=== PATIENT | female | born 2000 | race Caucasian/White ===

== ENCOUNTER 2018-06-30 04:35 | Inpatient (IN) | payer MEDICAID ==
[~2018-06-30] VITALS: Ht 162.6 cm; Wt 68.0 kg
[2018-06-30 04:45] VITALS: BP 128/71; PULSE 74
[2018-06-30] MEDS ORDERED: LIDOCAINE 1% (MPF) 30 ML INJ INJ PRN (05:00)
[2018-06-30] MEDS ORDERED: OXYTOCIN 30 UNITS/LR 500 ML IV PRN ×2 (05:00→16:00)
[2018-06-30] MEDS ORDERED: METHYLERGONOVINE 0.2 MG INJ IM PRN ×2 (05:00→16:00)
[2018-06-30] MEDS ORDERED: CARBOPROST 250 MCG INJ IM PRN ×2 (05:00→16:00)
[2018-06-30] MEDS ORDERED: OXYTOCIN 30 UNITS/LR 500 ML IV SCH ×2 (05:00)
[2018-06-30] MEDS ORDERED: MINERAL OIL LIGHT 10 ML VIAL TOP PRN (05:00)
[2018-06-30] MEDS ORDERED: MISOPROSTOL 200 MCG TAB PR PRN ×2 (05:00→16:00)
[2018-06-30] MEDS ORDERED: OXYCODONE/ASPIRIN (4.88/325) TAB PO PRN ×3 (05:00→16:00)
[2018-06-30] MEDS ORDERED: BUTORPHANOL 2 MG INJ IV PRN (05:00)
[2018-06-30] MEDS ORDERED: DEXTROSE 5%-LR 1,000 ML IV PRN (05:00)
[2018-06-30] MEDS ORDERED: IBUPROFEN 600 MG TAB PO PRN (05:00)
[2018-06-30] MEDS ORDERED: PREN1TAB13 PO (05:06)
[2018-06-30 05:24] VITALS: Ht 162.6 cm; Wt 68.0 kg
[2018-06-30] MEDS: LACTATED RINGER'S 1,000 ML IV SCH ×3 (05:37→18:32)
--- NOTE | 2018-06-30 06:22 | PREAC ---
Date/Time of Note Date/Time of Note DATE: 06/30/18 TIME: 06:21 Anesthesia Eval and Record Evaluation Time Pre-Procedure Interview DATE: 06/30/18 TIME: 06:21 Age 17 Sex female NPO: 8 hrs Preoperative diagnosis labor pain Planned procedure Epidural Past Medical History Past Medical History: None Surgery & Anesthesia Issues No known issue Meds Anticoagulation: No Beta Crow within 24 hr: No Reason Beta Crow not given: Pt. not on B-Crow Reported Medications Pnv95/Ferrous Fumarate/FA ( Vitamins Tablet) 1 Each Tablet, 1 EACH PO, TAB 06/30/18 Current Medications Lactated Ringer's 1,000 ml @ 125 mls/hr Q8H IV Last administered on 06/30/18at 06:18; Admin Dose 125 MLS/HR; Start 06/30/18 at 04:59 Dextrose/Lactated Ringer's 1,000 ml @ 125 mls/hr Q8H PRN IV MINIMAL VARIABILITY; Start 06/30/18 at 05:00 Butorphanol Tartrate (Stadol) 2 mg Q2H PRN IV .PAIN; Start 06/30/18 at 05:00 Lidocaine (Xylocaine 1% (Mpf)) 30 ml ONCE PRN INJ .EPISIOTOMY; Start 06/30/18 at 05:00 Oxytocin/Lactated Ringer's 500 ml @ 500 mls/hr ONCE POST IV ; Start 06/30/18 at 05:00 Oxytocin/Lactated Ringer's 500 ml @ 125 mls/hr POST IV ; Start 06/30/18 at 05:00 Ibuprofen (Motrin) 600 mg ONCE PRN PO .PAIN 1-5; Start 06/30/18 at 05:00 Oxycodone/Aspirin (Percodan) 2 tab ONCE PRN PO .PAIN 6-10; Start 06/30/18 at 05:00 Oxytocin/Lactated Ringer's 500 ml @ 0 mls/hr ONCE PRN IV .VAGINAL BLEEDING; Start 06/30/18 at 05:00 Methylergonovine Maleate (Methergine) 0.2 mg ONCE PRN IM .VAGINAL BLEEDING; Start 06/30/18 at 05:00 Carboprost Tromethamine (Hemabate) 250 mcg ONCE PRN IM .VAGINAL BLEEDING; Start 06/30/18 at 05:00 Misoprostol (Cytotec) 1,000 mcg ONCE PRN NM .VAGINAL BLEEDING; Start 06/30/18 at 05:00 Mineral Oil (Muri-Lube) PRN PRN TOP VAGINAL DELIVERY; Start 06/30/18 at 05:00 Meds reviewed: Yes Allergies Coded Allergies: No Known Allergy (Unverified , 06/30/18) Allergies Reviewed: Yes Labs/Studies Labs Reviewed: Reviewed by anesthesiologist Result Diagram: 06/30/18 0530 06/30/18 0530 Laboratory Tests 06/30/18 05:30 test: Positive Studies: ECG (n/a), CXR (n/a) Pre-procedure Exam Last vitals Vital Signs Date Temp Pulse Resp B/P (MAP) Pulse Ox O2 O2 Flow FiO2 Time Delivery Rate 06/30/18 98.3 74 128/71 Room Air 04:45 (90) Airway: Adequate mouth opening Mallampati: Mallampati I Teeth: Normal Lung: Normal Heart: Normal ASA Physical Status ASA physical status: 2 Emergency: None Planned Anesthetic Neuraxial: Epidural Pre-operative Attestations Prior to commencing anesthesia and surgery, the patient was re-evaluated, there was verification of: *The patient's identity *The results of appropriate recent lab work and preoperative vital signs *The above evaluation not changing prior to induction *Anesthetic plan, risk benefits, alternative and complications discussed with patient/family; questions answered; patient/family understands, accepts and wis hes to proceed. KRPUA BRIONES MD Jun 30, 2018 06:22
[2018-06-30] MEDS ORDERED: FENTAnyl 2MCG/ML-ROPIV 0.2% 100 ML ONE (06:39)
--- NOTE | 2018-06-30 06:49 | HP ---
Date/Time of Note Date/Time of Note DATE: 06/30/18 TIME: 06:41 OB - History Hx of Present Free Text/Dictation 17y.o at 40w1d with c/o UC's q2-3min with intact membrane since midnite. EFM uc's 2-3min ,CAT I EFW 3272gm CECILIA 5,7 record not available VE /-2 GBS neg Admitted for expectant management. Chief Complaint: uc's Estimated Due Date: Jun 29, 2018 : 2 Para: 1 Spontaneous : 0 Therapeutic : 0 Care: Limited Care Ultrasounds: Other Obstetrical Complications: None Medical Complications: None Past Family/Social History * Past Medical, Surgical, Family and Obstetric Histories reviewed from chart. Blood Type: A+ Rubella: immune RPR/VDRL: Negative GBS Status: Negative HBsAG: Negative OB Admission Exam Vital Signs Vital Signs Vital Signs Date Temp Pulse Resp B/P (MAP) Pulse Ox O2 O2 Flow FiO2 Time Delivery Rate 06/30/18 98.3 74 128/71 Room Air 04:45 (90) Physical Exam HEENT: WNL Heart: Rhythm Normal Lungs: Clear, Equal Abdomen: WNL Extremities: Normal Reflexes: Normal Cervical Dilatation: 4cm Effacement: 75% Station: -2 Membranes: Intact Amniotic Fluid: Unevaluable Heart Rate: 140's Accelerations: Accelerations Present Decelerations: No Decelerations Varibility: Moderate Contractions on Admission: < 5 Minutes Apart Intensity: Moderate Last 72 hours Lab Results CBC & BMP 06/30/18 05:30 OB Assessment/Plan Reason for admission: active labor Other Assessment: IUP 40w1d oligohydramnios Plan: Expectant Management DENA GU MD Jun 30, 2018 06:49
[2018-06-30] MEDS ORDERED: FENTAnyl 2MCG/ML-ROPIV 0.2% 100 ML BAG EPI SCH (07:30)
[2018-06-30] MEDS ORDERED: NALOXONE (0.4 MG/ML) INJ IV PRN (07:30)
--- NOTE | 2018-06-30 07:47 | PAC ---
Date/Time of Note Date/Time of Note DATE: 06/30/18 TIME: 07:47 Post-Anesthesia Notes Post-Anesthesia Note Last documented vital signs Vital Signs Date Temp Pulse Resp B/P (MAP) Pulse Ox O2 O2 Flow FiO2 Time Delivery Rate 06/30/18 98.3 74 19 128/71 100 Room Air 08:45 (90) Activity: WNL Respiratory function: WNL Cardiovascular function: WNL Mental status: Baseline Pain reasonably controlled: Yes Hydration appropriate: Yes Nausea/Vomiting absent: No KRUPA BRIONES MD Jun 30, 2018 07:47
[2018-06-30] MEDS ORDERED: ROPIVACAINE 0.2% 100ML BAG EPI SCH (13:00)
[2018-06-30] MEDS ORDERED: SOD CHLORIDE 0.9% 1,000 ML IV SCH (13:30)
[2018-06-30] MEDS ORDERED: CEFTRIAXONE 1 GM/50 ML (PMX) 50 ML IVPB SCH (14:30)
--- NOTE | 2018-06-30 14:53 | LDN ---
Date/Time of Note Date/Time of Note DATE: 06/30/18 TIME: 14:47 Delivery Summary of normal male Weeks of Gestation 40w1d Placenta Delivered: Spontaneously, Intact & Complete Episiotomy: No Perineal laceration: 2 Laceration repair: 00 ch gut Anesthesia type: Epidural Estimated blood loss: 100 Sponge & Needle done & correct: Yes All needle counts correct: Yes Any foreign bodies felt in the: No Infant Delivery Information Sex Sex: male Apgars 1 Minute: 9 5 Minute: 9 Suctioning Nose & mouth suctioned at daniel: Yes Delee suction performed: Yes Umbilical Cord Umbilical cord with: 3 Vessels Cord presentations: no nuchal cord Cord Blood was obtained: Yes Mother & Baby Disposition Disposition Mom & Baby to Maternity; Good: Yes Mom transferred to: Other Baby to NICU: No () DENA GU MD Jun 30, 2018 14:53
[2018-06-30 16:00] VITALS: BP 138/71; PULSE 83; RESP 18
[2018-06-30] MEDS ORDERED: LANOLIN HPA 1 PKT TOP PRN (16:00)
[2018-06-30] MEDS ORDERED: WITCH HAZEL/GLYCERIN PAD PR PRN (16:00)
[2018-06-30] MEDS ORDERED: BENZOCAINE 20% 56 ML SPRAY TOP PRN (16:00)
[2018-06-30] MEDS ORDERED: ZOLPIDEM 5 MG TAB PO PRN (16:00)
[2018-06-30 17:20] VITALS: BP 132/70; PULSE 91; RESP 18
[2018-06-30] MEDS: IBUPROFEN 600 MG TAB PO SCH ×2 (17:23→23:37)
[2018-06-30 19:45] VITALS: BP 129/80; PULSE 99; RESP 18
[2018-06-30] MEDS: SENNA/DOCUSATE NA (8.6MG/50MG) TAB PO SCH (21:17)
[2018-07-01 00:15] VITALS: BP 122/78; PULSE 89; RESP 18
[2018-07-01 04:00] VITALS: BP_SYST 118; BP_SYST 129; BP_DIAS 58; BP_DIAS 79; PULSE 74; PULSE 81; RESP 18
[2018-07-01] MEDS: IBUPROFEN 600 MG TAB PO SCH ×4 (05:40→23:47)
[2018-07-01 07:45] VITALS: BP 101/54; PULSE 75; RESP 19
[2018-07-01] MEDS: SENNA/DOCUSATE NA (8.6MG/50MG) TAB PO SCH ×2 (09:46→22:13)
[2018-07-01 12:00] VITALS: BP 100/55; PULSE 68; RESP 20
[2018-07-01 15:30] VITALS: BP 101/59; PULSE 66; RESP 20
[2018-07-01 20:00] VITALS: BP 121/70; PULSE 62; RESP 18
[2018-07-02 05:18] VITALS: BP 104/56; PULSE 62; RESP 18
[2018-07-02] MEDS: IBUPROFEN 600 MG TAB PO SCH ×2 (05:59→12:16)
[2018-07-02 08:00] VITALS: BP 110/68; PULSE 68; RESP 19
[2018-07-02] MEDS: SENNA/DOCUSATE NA (8.6MG/50MG) TAB PO SCH (08:59)
[2018-07-02] MEDS ORDERED: DIPHTH/TET/ACEL PERTUSS (ADULT) 0.5 ML VIAL IM* ONE (09:00)
--- NOTE | 2018-07-02 09:24 | PD.PPDC ---
TRAVEL PTA Discharge Instruction Condition [id number] Patient Condition: Pqwxz2v Good Diet Mdeba0Ns Diet: Bnfij9s Resume Regular Diet Activity/Restrictions [id number] Activity: Awuyp2g Normal Activity May Shower [id number] Restrictions: [id number] No Sexual Activity Nothing in the Vagina No Margaret No Tampons, douche Follow-up Follow-up with Physician: 6, Week/Weeks Return to clinic for [id number] BLOOD BANK ORDER CONTROL CLERK Instructions: Byzkb9h Fever greater than 101 Chills Worsening abdominal pain Excessive Vaginal Bleeding [id number] OB Instructions: Sdemi9k Breast Tenderness Depression TORI LEON MD Jul 02, 2018 09:24
--- NOTE | 2018-07-02 09:26 | DS ---
Date/Time of Note Date/Time of Note DATE: 07/02/18 TIME: 09:25 Obstetrical Discharge Record Final Diagnosis Final Diagnosis: Term delivered Vaginal Delivery Obstetrical Delivery: Spontaneous, Laceration, Repaired Complications Augmentation: No Induction: No Condition on Discharge Physical Assessment Voiding: Yes Bowel Movement: Yes Breast: Filling Fundus: Firm Calf Tenderness: No Patient Condition: Good TORI LEON MD Jul 02, 2018 09:26
--- NOTE | 2018-07-02 19:50 | QN ---
Documentation Comment this is a late entry note for 07/01/2018 day #1 Status post Patient stable and afebrile Tolerating regular diet and ambulating and voiding without any difficulties Vital signs stable VS - Last 72 Hours, by Label Date Temp Pulse Resp B/P (MAP) Pulse Ox O2 O2 Flow FiO2 Time Delivery Rate 07/02/18 98.4 68 19 110/68 Room Air 08:00 (82) 07/02/18 98.2 62 18 104/56 Room Air 05:18 (72) 07/01/18 98.1 62 18 121/70 Room Air 20:00 (87) 07/01/18 98.3 66 20 101/59 Room Air 15:30 (73) 07/01/18 98.0 68 20 100/55 Room Air 12:00 (70) 07/01/18 98.2 75 19 101/54 Room Air 07:45 (70) 07/01/18 98.3 81 18 129/58 Room Air 04:00 (81) 07/01/18 98.0 89 18 122/78 Room Air 00:15 (93) 06/30/18 98.3 99 18 129/80 Room Air 19:45 (96) 06/30/18 99.0 91 18 132/70 Room Air 17:20 (90) 06/30/18 99.1 83 18 138/71 Room Air 16:00 (93) 06/30/18 98.3 74 128/71 Room Air 04:45 (90) Hematology - 72 Hrs Test 06/30/18 05:30 07/01/18 06:20 Hematocrit 34.2 % (37.0-47.0) L 35.0 % (37.0-47.0) L Hemoglobin 11.3 g/dl (12.0-16.0) L 11.3 g/dl (12.0-16.0) L Mean Corpuscular 29.5 pg (29.0-33.0) 29.2 pg (29.0-33.0) Hemoglobin Mean Corpuscular 33.0 g/dl (32.0-37.0) 32.3 g/dl (32.0-37.0) Hemoglobin Concent Mean Corpuscular Volume 89.3 fl (72.0-104.0) 90.4 fl (72.0-104.0) Mean Platelet Volume 10.7 fl (7.4-10.4) H 10.9 fl (7.4-10.4) H Platelet Count 292 10^3/UL (140-415) 303 10^3/UL (140-415) Red Blood Count 3.83 10^6/ul (4.20-5.40) 3.87 10^6/ul (4.20-5.40) L L Red Cell Distribution 13.2 % (11.5-14.5) 13.4 % (11.5-14.5) Width White Blood Count 11.0 10^3/ul (4.8-10.8) 13.7 10^3/ul (4.8-10.8) H #H Chemistry Test 06/30/18 05:30 Glucose Level 84 mg/dl (70-220) Abdomen soft, fundus firm Perineum intact Extremities nontender Assessment and plan; Patient stable and doing well continue with routine care ALISON ALLEN MD Jul 02, 2018 19:50
--- NOTE | 2018-07-03 13:41 | DELSUM ---
Delivery Summary A-C Datetime Report Generated by CPN: 07/03/2018 13:41 DELIVERY PERSONNEL [employer]: [employer] MATERNAL INFORMATION Delivery Anesthesia: Epidural Medications in Delivery: OXYTOCIN 30 UNITS IN LR Delivery QBL (ml): 72 Placenta Cultured: No LABOR SUMMARY EDC: 06/29/2018 00:00 No. Babies in Womb: 1 Attempted: No Labor Anesthesia: Epidural LABOR INFORMATION Reason for Induction: Not Applicable Onset of Labor: 06/30/2018 00:00 Complete Dilatation: 06/30/2018 12:17 Oxytocin: N/A Group B Beta Strep: Negative Antibiotics # of Doses: 0 Steroids Given: None Reason Steroids Not Administered: Not Applicable MEMBRANES Membranes Rupture Method: Artificial Rupture of Membranes: 06/30/2018 12:57 Length of Rupture (hr): 0.03 Amniotic Fluid Color: Clear Amniotic Fluid Amount: Small Amniotic Fluid Odor: None STAGES OF LABOR Stage 1 hr: 12 Stage 1 min: 17 Stage 2 hr: 0 Stage 2 min: 42 Stage 3 hr: 0 Stage 3 min: 3 Total Time in Labor hr: 13 Total Time in Labor min: 2 VAGINAL DELIVERY Episiotomy: None Laceration Extension: Second Degree Laceration Type: Perineal Laceration Repair: Yes Initial Vag Sponge Count: 10 Final Vag Sponge Count: 10 Initial Vag Sharps Count: 1+1 Final Vag Sharps Count: 2 Sponge Count Correct: Yes; Vaginal Sweep Performed Sharps Count Correct: Yes BABY A INFORMATION Infant Delivery Date/Time: 06/30/2018 12:59 Method of Delivery: Vaginal Born in Route : No : N/A Forceps: N/A Vacuum Extraction: N/A Shoulder Dystocia : N/A SHOULDER DYSTOCIA BABY A Infant Delivery Date/Time: 06/30/2018 12:59 PRESENTATION/POSITION BABY A Presentation: Cephalic Cephalic Presentation: Vertex Vertex Position: Left Occipital Anterior Breech Presentation: N/A PLACENTA INFORMATION BABY A Placenta Delivery Time : 06/30/2018 13:02 Placenta Method of Delivery: Spontaneous Placenta Status: Delivered SCORES BABY A Heart Rate 1 min: >100 bpm Resp Effort 1 min: Good Cry Reflex Irritability 1 min: Cough/Sneeze/Pulls Away Muscle Tone 1 min: Active Motion Color 1 min: Body [place], Extremit Blue Resuscitation Effort 1 min: Tactile Stimulation SCORE 1 MIN: 9 Heart Rate 5 min: >100 bpm Resp Effort 5 min: Good Cry Reflex Irritability 5 min: Cough/Sneeze/Pulls Away Muscle Tone 5 min: Active Motion Color 5 min: Body [place], Extremit Blue Resuscitation Effort 5 min: Tactile Stimulation SCORE 5 MIN: 9 INFANT INFORMATION BABY A Gestational Age at Delivery: 40.1 Gestational Status: Full Term- 39- 40.6 Weeks Infant Outcome : Liveborn Infant Condition : Stable Sex: Male IDENTIFICATION/MEDS BABY A ID Band Number: [id number] ID Band Location: Right Leg; Left Arm Sensor Applied: Yes Sensor Number: [id number] Sensor Location : Cord Clamp Vitamin K Given : Not Given Erythromycin Given: Not Given WEIGHT/LENGTH BABY A Birthweight (gm): 3200 Infant Weight (lb): 7 Weight (oz): 1 Infant Length (in): 20.75 Infant Length (cm): 52.71 CORD INFORMATION BABY A No. Cord Vessels: 3 Nuchal Cord : N/A Cord Blood Taken: Yes Banking/Donate Info: N/A Infant Suction: Mouth; Nose ASSESSMENT BABY A Infant Complications: None Physical Findings at Delivery: Within Normal Limits Infant Respirations: Appears Normal Engineering Manager Electronics/ALS Called : No Infant Care By: MICHELLE Transferred To: Remains with Mother
== END 2018-07-02 13:41 | disposition home or self-care (01) | DRG 807 ==
LOC: L-D 04:35 → OBT 04:35 → L-D 05:00 → OBT 05:13 → PP1 15:35
PROVIDERS: ADMIT Obstetrics & Gynecology; ATTEND Obstetrics & Gynecology
PROC: 10E0XZZ Delivery of Products of Conception, External Approach (ICD-10-PCS; principal; 2018-06-30)
PROC: 0KQM0ZZ Repair Perineum Muscle, Open Approach (ICD-10-PCS; 2018-06-30)
PROC: 4A1HXCZ Monitoring of Products of Conception, Cardiac Rate, External Approach (ICD-10-PCS; 2018-06-30)
PROC: 3E0234Z Introduction of Serum, Toxoid and Vaccine into Muscle, Percutaneous Approach (ICD-10-PCS; 2018-07-02)
DX: O48.0 Post-term pregnancy (principal); Z37.0 Single live birth; Z3A.40 40 weeks gestation of pregnancy; O70.1 Second degree perineal laceration during delivery; O69.81X0 Labor and delivery complicated by cord around neck, without compression, not applicable or unspecified; Z23 Encounter for immunization
CPT/HCPCS: 62319; 76815; 76818; 80307; 81001; 82947; 85025; 85610; 85730; 86592; 86850; 86900; 86901; 87340; 90715; G0463; J0696; J2590; J2795; J3010; J7030; J7120